=== PATIENT | female | born 1950 | race Native Hawaiian/Other Pacific Islander ===

== ENCOUNTER 2019-06-01 00:36 | Inpatient (IN) | payer OTHER, MEDICAID ==
[~2019-06-01] VITALS: Ht 161.3 cm; Wt 58.1 kg
[2019-06-01] VITALS (8 sets, daily range): BP systolic 119–153
[2019-06-01] MEDS ORDERED: ASPIRIN 81 MG TAB.CHEW PO ONE (01:15)
[2019-06-01 01:47] LABS: BASOPHILS # (AUTO) 0.1 K/uL (0.0-0.2); BASOPHILS % (AUTO) 0.9 % (0.0-2.0); EOSINOPHILS # (AUTO) 0.1 K/uL (0.0-0.4); EOSINOPHILS % (AUTO) 1.9 % (0.0-4.0); HEMATOCRIT 33.8 % (36-48); HEMOGLOBIN 10.8 g/dL (12.0-16.0); LYMPHOCYTES # (AUTO) 1.6 K/uL (1.0-5.5); LYMPHOCYTES % (AUTO) 21.1 % (20.5-51.5); MEAN CORPUSCULAR HEMOGLOBIN 25 pg (27-31); MEAN CORPUSCULAR HGB CONC 32 % (32-36); MEAN CORPUSCULAR VOLUME 79 fL (79.0-98.0); MONOCYTES # (AUTO) 0.4 K/uL (0.0-1.0); MONOCYTES % (AUTO) 5.4 % (1.7-9.3); NEUTROPHILS # (AUTO) 5.4 K/uL (1.8-7.7); NEUTROPHILS % (AUTO) 70.7 % (40.0-70.0); PLATELET COUNT (AUTO) 335 K/uL (130-430); RED BLOOD CELL COUNT(AUTO) 4.28 MIL/uL (4.2-6.2); WHITE BLOOD COUNT (AUTO) 7.7 K/uL (4.8-10.8)
[2019-06-01 01:53] LABS: PROTHROMBIN TIME 10.3 SECS (9.5-12.5)
[2019-06-01 01:56] LABS: CALCIUM 8.3 mg/dL (8.4-11.0); CREATININE 1.34 mg/dL (0.55-1.30)
[2019-06-01 02:01] LABS: ALBUMIN 3.3 g/dL (3.4-4.8); TOTAL BILIRUBIN 0.3 mg/dL (0.0-1.0)
[2019-06-01] MEDS ORDERED: HEPARIN 25,000 UNITS/D5W 250ML 250 ML IV ONE (02:30)
[2019-06-01] MEDS ORDERED: DOXYCYCLINE HYCLATE 100 MG CAPSULE PO ONE (02:30)
[2019-06-01] MEDS ORDERED: HEPARIN SODIUM,PORCINE 5000 UNITS/ML VIAL IVP ONE (02:30)
[2019-06-01] MEDS ORDERED: DOXYCYCLINE HYCLATE 100 MG CAPSULE ONE (03:52)
[2019-06-01] MEDS ORDERED: ONDANSETRON HCL 4 MG/2 ML VIAL IVP PRN (05:00)
[2019-06-01] MEDS ORDERED: ACETAMINOPHEN 325 MG TABLET PO PRN (05:00)
[2019-06-01] MEDS ORDERED: HYDROcodone/ACETAMIN 5-325 MG TAB (NORCO/ VICODIN) PO PRN (05:00)
[2019-06-01] MEDS ORDERED: POTASSIUM CHLORIDE 20 MEQ TAB.PRT.SR PO ONE (05:00)
[2019-06-01] MEDS ORDERED: FLU VACC TS2019(65UP)/MF59C/PF 45 MCG/0.5 ML SYRINGE I.M. PRN (08:15)
[2019-06-01] MEDS ORDERED: PIPERACILLIN/TAZO 3.375/DEX-IS 50 ML IV SCH (08:15)
[2019-06-01 08:20] LABS: BASOPHILS % (AUTO) 0.5 % (0.0-2.0); EOSINOPHILS % (AUTO) 0.5 % (0.0-4.0); HEMATOCRIT 31.5 % (36-48); HEMOGLOBIN 10.3 g/dL (12.0-16.0); LYMPHOCYTES # (AUTO) 1.3 K/uL (1.0-5.5); LYMPHOCYTES % (AUTO) 18.4 % (20.5-51.5); MEAN CORPUSCULAR HEMOGLOBIN 26 pg (27-31); MEAN CORPUSCULAR HGB CONC 33 % (32-36); MEAN CORPUSCULAR VOLUME 79 fL (79.0-98.0); MONOCYTES # (AUTO) 0.3 K/uL (0.0-1.0); MONOCYTES % (AUTO) 4.7 % (1.7-9.3); NEUTROPHILS # (AUTO) 5.4 K/uL (1.8-7.7); NEUTROPHILS % (AUTO) 75.9 % (40.0-70.0); PLATELET COUNT (AUTO) 312 K/uL (130-430); RED BLOOD CELL COUNT(AUTO) 4.02 MIL/uL (4.2-6.2); RED CELL DISTRIBUTION WIDTH 17.1 % (9.0-15.0); WHITE BLOOD COUNT (AUTO) 7.1 K/uL (4.8-10.8)
[2019-06-01 08:42] LABS: CALCIUM 8.3 mg/dL (8.4-11.0); CREATININE 1.17 mg/dL (0.55-1.30); PHOSPHORUS 3.9 mg/dL (2.7-4.5); THYROID STIMULATING HORMONE 1.13 uIu/mL (0.36-3.74)
[2019-06-01] MEDS ORDERED: PIPERACILLIN/TAZO 3.375/DEX-IS 50 ML IV ONE (09:00)
[2019-06-01] MEDS ORDERED: ASPIRIN 81 MG TABLET(ECOTRIN) PO SCH (10:00)
[2019-06-01] MEDS ORDERED: FUROSEMIDE 40 MG TABLET PO ONE (10:15)
[2019-06-01] MEDS ORDERED: CARVEDILOL 3.125 MG TABLET (COREG) PO ONE (10:15)
[2019-06-01] MEDS ORDERED: LISINOPRIL 5 MG TABLET PO ONE (10:15)
[2019-06-01] MEDS ORDERED: SPIRONOLACTONE 50 MG TABLET (ALDACTONE) PO ONE (10:15)
[2019-06-01] MEDS ORDERED: ATORVASTATIN 10 MG TABLET PO ONE (10:30)
[2019-06-01] MEDS: DOCUSATE SODIUM 100 MG CAPSULE PO SCH ×2 (10:56→21:00)
[2019-06-01 11:08] LABS: BILIRUBIN,URINE NEGATIVE (NEGATIVE); BLOOD, URINE NEGATIVE (NEGATIVE); CLARITY/URINE CLEAR (CLEAR); COLOR,URINE YELLOW (YELLOW); GLUCOSE,URINE NEGATIVE (NEGATIVE); KETONES,URINE NEGATIVE (NEGATIVE); LEUKOCYTE ESTERASE ,URINE NEGATIVE (NEGATIVE); NITRITE, URINE NEGATIVE (NEGATIVE); PROTEIN URINE NEGATIVE (NEGATIVE); UROBILINOGEN,URINE 0.2 (0.2-1.0)
[2019-06-01 11:18] LABS: BARBITURATE, URINE NEGATIVE (NEG <=200); BENZODIAZEPINE, URINE NEGATIVE (NEG <=150); CANNABINOID, URINE NEGATIVE (NEG <=50); COCAINE, URINE NEGATIVE (NEG <=150); METHAMPHETAMINES SCREEN,URINE NEGATIVE (NEG <=500); OPIATE, URINE NEGATIVE (NEG <=100); PHENCYCLIDINE SCREEN,URINE NEGATIVE (NEG <=25); UR TRICYCLIC ANTIDEPRESSANTS NEGATIVE (NEG <=300); URINE AMPHETAMINE NEGATIVE (NEG <=500); URINE METHADONE NEGATIVE (NEG <=200); URINE OXYCODONE SCREEN NEGATIVE (NEG <=100); URINE PROPOXYPHENE SCREEN NEGATIVE (NEG <=300)
[2019-06-01] MEDS: PIPERACILLIN/TAZO 2.25G/DEX-IS 50 ML IV SCH ×2 (14:42→21:00)
[2019-06-01] MEDS ORDERED: FUROSEMIDE 20 MG/2 ML VIAL IVP ONE (15:15)
[2019-06-01] MEDS ORDERED: METOPROLOL TARTRATE 25 MG TABLET PO SCH (21:00)
[2019-06-01] MEDS ORDERED: ENOXAPARIN SODIUM 40 MG/0.4 ML SYRINGE SUBCUT SCH (21:00)
[2019-06-01] MEDS: CARVEDILOL 3.125 MG TABLET (COREG) PO SCH (21:00)
[2019-06-02] VITALS (7 sets, daily range): BP systolic 100–132
[2019-06-02] MEDS: PIPERACILLIN/TAZO 2.25G/DEX-IS 50 ML IV SCH ×4 (02:58→20:56)
[2019-06-02 07:08] LABS: BASOPHILS # (AUTO) 0.1 K/uL (0.0-0.2); BASOPHILS % (AUTO) 0.8 % (0.0-2.0); EOSINOPHILS # (AUTO) 0.2 K/uL (0.0-0.4); EOSINOPHILS % (AUTO) 3.4 % (0.0-4.0); HEMOGLOBIN 11.4 g/dL (12.0-16.0); LYMPHOCYTES # (AUTO) 1.3 K/uL (1.0-5.5); LYMPHOCYTES % (AUTO) 20.1 % (20.5-51.5); MEAN CORPUSCULAR HEMOGLOBIN 25 pg (27-31); MEAN CORPUSCULAR HGB CONC 32 % (32-36); MEAN CORPUSCULAR VOLUME 79 fL (79.0-98.0); MONOCYTES # (AUTO) 0.4 K/uL (0.0-1.0); MONOCYTES % (AUTO) 6.6 % (1.7-9.3); NEUTROPHILS # (AUTO) 4.5 K/uL (1.8-7.7); NEUTROPHILS % (AUTO) 69.1 % (40.0-70.0); PLATELET COUNT (AUTO) 357 K/uL (130-430); RED BLOOD CELL COUNT(AUTO) 4.57 MIL/uL (4.2-6.2); RED CELL DISTRIBUTION WIDTH 17.3 % (9.0-15.0); WHITE BLOOD COUNT (AUTO) 6.5 K/uL (4.8-10.8)
[2019-06-02 07:37] LABS: ALBUMIN 3.3 g/dL (3.4-4.8); CALCIUM 8.8 mg/dL (8.4-11.0); CREATININE 1.57 mg/dL (0.55-1.30); POTASSIUM 3.9 mmol/L (3.5-5.1); THYROID STIMULATING HORMONE 1.05 uIu/mL (0.36-3.74); TOTAL BILIRUBIN 0.6 mg/dL (0.0-1.0)
[2019-06-02] MEDS: DOCUSATE SODIUM 100 MG CAPSULE PO SCH ×2 (09:00→20:55)
[2019-06-02] MEDS: ASPIRIN 81 MG TAB.CHEW PO SCH (09:15)
[2019-06-02] MEDS: ATORVASTATIN 10 MG TABLET PO SCH (09:15)
[2019-06-02] MEDS: LISINOPRIL 5 MG TABLET PO SCH (09:16)
[2019-06-02] MEDS: CARVEDILOL 3.125 MG TABLET (COREG) PO SCH ×2 (09:16→20:55)
[2019-06-02] MEDS: FUROSEMIDE 40 MG TABLET PO SCH (09:17)
[2019-06-02] MEDS: SPIRONOLACTONE 50 MG TABLET (ALDACTONE) PO SCH (09:19)
[2019-06-02] MEDS: AZITHROMYCIN 500 MG in NS 250 ML IV SCH (12:18)
[2019-06-02] MEDS: ENOXAPARIN SODIUM 40 MG/0.4 ML SYRINGE SUBCUT SCH (20:57)
[2019-06-03] VITALS: BP_SYST 117
[2019-06-03] MEDS: PIPERACILLIN/TAZO 2.25G/DEX-IS 50 ML IV SCH ×4 (02:44→20:39)
[2019-06-03 06:42] LABS: BASOPHILS % (AUTO) 0.7 % (0.0-2.0); EOSINOPHILS # (AUTO) 0.3 K/uL (0.0-0.4); EOSINOPHILS % (AUTO) 5.2 % (0.0-4.0); LYMPHOCYTES # (AUTO) 1.5 K/uL (1.0-5.5); LYMPHOCYTES % (AUTO) 25.9 % (20.5-51.5); MEAN CORPUSCULAR HEMOGLOBIN 25 pg (27-31); MEAN CORPUSCULAR HGB CONC 32 % (32-36); MEAN CORPUSCULAR VOLUME 79 fL (79.0-98.0); MONOCYTES # (AUTO) 0.5 K/uL (0.0-1.0); NEUTROPHILS # (AUTO) 3.4 K/uL (1.8-7.7); NEUTROPHILS % (AUTO) 59.2 % (40.0-70.0); PLATELET COUNT (AUTO) 343 K/uL (130-430); RED BLOOD CELL COUNT(AUTO) 4.43 MIL/uL (4.2-6.2); RED CELL DISTRIBUTION WIDTH 17.5 % (9.0-15.0); WHITE BLOOD COUNT (AUTO) 5.8 K/uL (4.8-10.8)
[2019-06-03 06:55] LABS: CALCIUM 8.7 mg/dL (8.4-11.0); CREATININE 1.51 mg/dL (0.55-1.30); POTASSIUM 3.2 mmol/L (3.5-5.1)
[2019-06-03 07:33] VITALS: BP_SYST 133
[2019-06-03] MEDS: FUROSEMIDE 40 MG TABLET PO SCH (08:44)
[2019-06-03] MEDS: ASPIRIN 81 MG TAB.CHEW PO SCH (08:44)
[2019-06-03] MEDS: LISINOPRIL 5 MG TABLET PO SCH (08:45)
[2019-06-03] MEDS: ATORVASTATIN 10 MG TABLET PO SCH (08:45)
[2019-06-03] MEDS: CARVEDILOL 3.125 MG TABLET (COREG) PO SCH (08:45)
[2019-06-03] MEDS: SPIRONOLACTONE 50 MG TABLET (ALDACTONE) PO SCH (08:46)
[2019-06-03] MEDS: DOCUSATE SODIUM 100 MG CAPSULE PO SCH ×2 (08:49→20:40)
[2019-06-03] MEDS ORDERED: POTASSIUM CHLORIDE 20 MEQ TAB.PRT.SR PO ONE (09:45)
[2019-06-03] MEDS: AZITHROMYCIN 500 MG in NS 250 ML IV SCH (10:57)
[2019-06-03 11:27] VITALS: BP_SYST 99
[2019-06-03 15:17] VITALS: BP_SYST 127
[2019-06-03 20:00] VITALS: BP_SYST 113
[2019-06-03] MEDS: CARVEDILOL 12.5 MG TABLET (COREG) PO SCH (20:40)
[2019-06-03] MEDS: ENOXAPARIN SODIUM 40 MG/0.4 ML SYRINGE SUBCUT SCH (20:46)
[2019-06-04] VITALS: BP_SYST 100
[2019-06-04] MEDS: PIPERACILLIN/TAZO 2.25G/DEX-IS 50 ML IV SCH ×2 (03:00→08:08)
[2019-06-04 07:03] LABS: BASOPHILS # (AUTO) 0.1 K/uL (0.0-0.2); EOSINOPHILS # (AUTO) 0.2 K/uL (0.0-0.4); EOSINOPHILS % (AUTO) 4.4 % (0.0-4.0); HEMATOCRIT 35.4 % (36-48); HEMOGLOBIN 11.1 g/dL (12.0-16.0); LYMPHOCYTES # (AUTO) 1.5 K/uL (1.0-5.5); LYMPHOCYTES % (AUTO) 28.1 % (20.5-51.5); MEAN CORPUSCULAR HEMOGLOBIN 25 pg (27-31); MEAN CORPUSCULAR HGB CONC 31 % (32-36); MEAN CORPUSCULAR VOLUME 79 fL (79.0-98.0); MONOCYTES # (AUTO) 0.5 K/uL (0.0-1.0); MONOCYTES % (AUTO) 8.3 % (1.7-9.3); NEUTROPHILS # (AUTO) 3.2 K/uL (1.8-7.7); NEUTROPHILS % (AUTO) 58.2 % (40.0-70.0); PLATELET COUNT (AUTO) 365 K/uL (130-430); RED BLOOD CELL COUNT(AUTO) 4.51 MIL/uL (4.2-6.2); RED CELL DISTRIBUTION WIDTH 17.4 % (9.0-15.0); WHITE BLOOD COUNT (AUTO) 5.5 K/uL (4.8-10.8)
[2019-06-04 07:36] LABS: CALCIUM 8.9 mg/dL (8.4-11.0); CREATININE 1.52 mg/dL (0.55-1.30); POTASSIUM 4.5 mmol/L (3.5-5.1)
[2019-06-04] MEDS: DOCUSATE SODIUM 100 MG CAPSULE PO SCH (07:45)
[2019-06-04] MEDS: ATORVASTATIN 10 MG TABLET PO SCH (08:06)
[2019-06-04] MEDS: ASPIRIN 81 MG TAB.CHEW PO SCH (08:06)
[2019-06-04 08:07] VITALS: BP_SYST 114
[2019-06-04] MEDS: CARVEDILOL 12.5 MG TABLET (COREG) PO SCH (08:07)
[2019-06-04] MEDS: FUROSEMIDE 40 MG TABLET PO SCH (08:07)
[2019-06-04] MEDS: SPIRONOLACTONE 50 MG TABLET (ALDACTONE) PO SCH (08:07)
[2019-06-04] MEDS ORDERED: LISINOPRIL 5 MG TABLET PO SCH (09:00)
[2019-06-04] MEDS ORDERED: FURO-149 PO (10:04)
[2019-06-04] MEDS ORDERED: LIP10 PO (10:04)
[2019-06-04] MEDS ORDERED: CARV6.2554 PO (10:04)
[2019-06-04] MEDS ORDERED: LEVO500T89 PO (10:05)
[2019-06-04] MEDS ORDERED: POTA8TAB4 PO (10:05)
[2019-06-04 10:14] VITALS: BP_SYST 126
[2019-06-04] MEDS ORDERED: FLU VACC TS2019(65UP)/MF59C/PF 45 MCG/0.5 ML SYRINGE I.M. PRN (10:30)
== END 2019-06-04 10:55 | disposition home or self-care (01) | DRG 177 ==
LOC: SED 00:36 → STU 03:31 → SIC 06:31 → STU 15:36
PROVIDERS: ADMIT Student in an Organized Health Care Education/Training Program; ATTEND Student in an Organized Health Care Education/Training Program
DX: J69.0 Pneumonitis due to inhalation of food and vomit (principal); I21.A1 Myocardial infarction type 2; N17.0 Acute kidney failure with tubular necrosis; I50.43 Acute on chronic combined systolic (congestive) and diastolic (congestive) heart failure; J44.1 Chronic obstructive pulmonary disease with (acute) exacerbation; I42.9 Cardiomyopathy, unspecified; E78.5 Hyperlipidemia, unspecified; E87.6 Hypokalemia; F17.210 Nicotine dependence, cigarettes, uncomplicated; I11.0 Hypertensive heart disease with heart failure; I34.0 Nonrheumatic mitral (valve) insufficiency; I44.7 Left bundle-branch block, unspecified; Z80.49 Family history of malignant neoplasm of other genital organs; Z82.49 Family history of ischemic heart disease and other diseases of the circulatory system
CPT/HCPCS: 36415; 71045; 71046-TC; 71250-TC; 80048; 80053; 80061; 80307; 81003; 82150-TC; 82550-TC; 83036; 83735-TC; 83880; 84100-TC; 84443-TC; 84484; 85025; 85379; 85610-TC; 85730-TC; 87040-TC; 87081; 93005; 93306; 96374; 99285; G0378; J0456; J1644; J1650; J1940; J2543; J7050

== ENCOUNTER 2019-10-12 12:17 | Inpatient (IN) | payer MEDICAID, OTHER ==
[~2019-10-12] VITALS: Ht 160 cm; Wt 59.0 kg
[2019-10-12 12:17] VITALS: BP_SYST 119
[~2019-10-12 12:17] MED LIST: CARV6.2554 PO; FURO-149 PO; LEVO500T89 PO; LIP10 PO; POTA8TAB4 PO
[2019-10-12 12:50] LABS: BASOPHILS % (AUTO) 0.4 % (0.0-2.0); EOSINOPHILS % (AUTO) 0.3 % (0.0-4.0); HEMATOCRIT 25.9 % (36-48); HEMOGLOBIN 8.1 g/dL (12.0-16.0); LYMPHOCYTES # (AUTO) 0.9 K/uL (1.0-5.5); LYMPHOCYTES % (AUTO) 18.1 % (20.5-51.5); MEAN CORPUSCULAR HEMOGLOBIN 25 pg (27-31); MEAN CORPUSCULAR HGB CONC 31 % (32-36); MEAN CORPUSCULAR VOLUME 80 fL (79.0-98.0); MONOCYTES # (AUTO) 0.8 K/uL (0.0-1.0); MONOCYTES % (AUTO) 16.1 % (1.7-9.3); NEUTROPHILS # (AUTO) 3.1 K/uL (1.8-7.7); NEUTROPHILS % (AUTO) 65.1 % (40.0-70.0); PLATELET COUNT (AUTO) 332 K/uL (130-430); RED BLOOD CELL COUNT(AUTO) 3.24 MIL/uL (4.2-6.2); RED CELL DISTRIBUTION WIDTH 16.1 % (9.0-15.0); WHITE BLOOD COUNT (AUTO) 4.8 K/uL (4.8-10.8)
[2019-10-12 12:58] LABS: CALCIUM 8.4 mg/dL (8.4-11.0); CREATININE 1.68 mg/dL (0.55-1.30); POTASSIUM 3.6 mmol/L (3.5-5.1)
[2019-10-12 13:02] LABS: INR 1.1 (0.8-1.2); PROTHROMBIN TIME 10.9 SECS (9.5-12.5)
[2019-10-12 13:03] LABS: TOTAL BILIRUBIN 0.3 mg/dL (0.0-1.0)
[2019-10-12 16:28] VITALS: BP_SYST 141
[2019-10-12] MEDS ORDERED: *HEPARIN PER PHARMACY XX ONE (16:30)
[2019-10-12] MEDS ORDERED: ASPIRIN 81 MG TAB.CHEW PO ONE (16:45)
[2019-10-12] MEDS ORDERED: FLU VACC TS2019(65UP)/MF59C/PF 45 MCG/0.5 ML SYRINGE I.M. PRN (16:45)
[2019-10-12] MEDS ORDERED: HEPARIN SODIUM,PORCINE 3000 UNITS/0.6 ML BOLUS IVP PRN (17:00)
[2019-10-12] MEDS ORDERED: HEPARIN SODIUM,PORCINE 2000 UNITS/0.4 ML BOLUS IVP PRN (17:00)
[2019-10-12] MEDS ORDERED: HEPARIN 25,000 UNITS in 250 ML PREMIX IV PRN (17:00)
[2019-10-12] MEDS ORDERED: HEPARIN SODIUM,PORCINE 5000 UNITS/ML VIAL IVP ONE (17:00)
[2019-10-12] MEDS ORDERED: PANTOPRAZOLE SODIUM 40 MG/VIAL (PROTONIX) IVP ONE (17:15)
[2019-10-12] MEDS ORDERED: DEXTROSE 50% JECT 50 ML DISP.SYRIN IVP PRN (17:30)
[2019-10-12] MEDS ORDERED: INSULIN REGULAR, HUMAN 100 UNITS/ML, 10 ML VIAL (humuLIN R) SUBCUT PRN (17:30)
[2019-10-12 17:59] LABS: TOTAL IRON BIND. CAPACITY 371 ug/dL (250-450)
[2019-10-12] MEDS: NACL 0.9% 1,000 ML IV SCH (18:07)
[2019-10-12] MEDS ORDERED: SOD FERRIC GLUC COMPLEX/SUC 125 MG in NS 100 ML IV SCH (19:15)
[2019-10-12 19:44] LABS: BASOPHILS % (AUTO) 0.4 % (0.0-2.0); EOSINOPHILS % (AUTO) 0.1 % (0.0-4.0); HEMATOCRIT 23.4 % (36-48); HEMOGLOBIN 7.4 g/dL (12.0-16.0); LYMPHOCYTES # (AUTO) 0.9 K/uL (1.0-5.5); LYMPHOCYTES % (AUTO) 18.1 % (20.5-51.5); MEAN CORPUSCULAR HEMOGLOBIN 25 pg (27-31); MEAN CORPUSCULAR HGB CONC 32 % (32-36); MEAN CORPUSCULAR VOLUME 80 fL (79.0-98.0); MONOCYTES # (AUTO) 0.5 K/uL (0.0-1.0); MONOCYTES % (AUTO) 9.6 % (1.7-9.3); NEUTROPHILS # (AUTO) 3.5 K/uL (1.8-7.7); NEUTROPHILS % (AUTO) 71.8 % (40.0-70.0); PLATELET COUNT (AUTO) 292 K/uL (130-430); RED BLOOD CELL COUNT(AUTO) 2.93 MIL/uL (4.2-6.2); RED CELL DISTRIBUTION WIDTH 16.2 % (9.0-15.0); WHITE BLOOD COUNT (AUTO) 4.9 K/uL (4.8-10.8)
[2019-10-12 20:00] VITALS: BP_SYST 120
[2019-10-12 20:37] LABS: BILIRUBIN,URINE NEGATIVE (NEGATIVE); BLOOD, URINE NEGATIVE (NEGATIVE); CLARITY/URINE CLEAR (CLEAR); COLOR,URINE YELLOW (YELLOW); GLUCOSE,URINE NEGATIVE (NEGATIVE); KETONES,URINE NEGATIVE (NEGATIVE); LEUKOCYTE ESTERASE ,URINE NEGATIVE (NEGATIVE); NITRITE, URINE NEGATIVE (NEGATIVE); PROTEIN URINE NEGATIVE (NEGATIVE); UROBILINOGEN,URINE 0.2 (0.2-1.0)
[2019-10-12] MEDS: PANTOPRAZOLE SODIUM 40 MG/VIAL (PROTONIX) IVP SCH (22:22)
[2019-10-12] MEDS: CARVEDILOL 6.25 MG TABLET (COREG) PO SCH (22:22)
[2019-10-13 00:10] VITALS: BP_SYST 138
[2019-10-13 03:01] VITALS: BP_SYST 140
[2019-10-13 07:13] LABS: BASOPHILS % (AUTO) 0.3 % (0.0-2.0); EOSINOPHILS % (AUTO) 0.7 % (0.0-4.0); HEMOGLOBIN 8.6 g/dL (12.0-16.0); LYMPHOCYTES # (AUTO) 0.9 K/uL (1.0-5.5); LYMPHOCYTES % (AUTO) 22.5 % (20.5-51.5); MEAN CORPUSCULAR HEMOGLOBIN 26 pg (27-31); MEAN CORPUSCULAR HGB CONC 32 % (32-36); MEAN CORPUSCULAR VOLUME 82 fL (79.0-98.0); MONOCYTES # (AUTO) 0.5 K/uL (0.0-1.0); MONOCYTES % (AUTO) 11.6 % (1.7-9.3); NEUTROPHILS # (AUTO) 2.5 K/uL (1.8-7.7); NEUTROPHILS % (AUTO) 64.9 % (40.0-70.0); PLATELET COUNT (AUTO) 275 K/uL (130-430); RED BLOOD CELL COUNT(AUTO) 3.28 MIL/uL (4.2-6.2); WHITE BLOOD COUNT (AUTO) 3.9 K/uL (4.8-10.8)
[2019-10-13 07:20] LABS: ALBUMIN 2.6 g/dL (3.4-4.8); CALCIUM 7.8 mg/dL (8.4-11.0); CREATININE 1.46 mg/dL (0.55-1.30); FREE T4 (FREE THYROXINE) 1.3 ng/dl (0.8-1.5); PHOSPHORUS 3.3 mg/dL (2.7-4.5); POTASSIUM 3.7 mmol/L (3.5-5.1); THYROID STIMULATING HORMONE 0.11 uIu/mL (0.36-3.74); TOTAL BILIRUBIN 0.2 mg/dL (0.0-1.0)
[2019-10-13 08:00] VITALS: BP_SYST 149
[2019-10-13] MEDS ORDERED: SOD FERRIC GLUC COMPLEX/SUC 125 MG in NS 100 ML IV SCH (09:00)
[2019-10-13] MEDS: ASPIRIN 81 MG TAB.CHEW PO SCH (10:10)
[2019-10-13] MEDS: ATORVASTATIN 10 MG TABLET PO SCH (10:11)
[2019-10-13] MEDS: PANTOPRAZOLE SODIUM 40 MG/VIAL (PROTONIX) IVP SCH ×2 (10:12→21:23)
[2019-10-13] MEDS: CARVEDILOL 6.25 MG TABLET (COREG) PO SCH ×2 (10:13→21:23)
[2019-10-13] MEDS: NACL 0.9% 1,000 ML IV SCH (12:05)
[2019-10-13 13:08] VITALS: BP_SYST 146
[2019-10-13] MEDS ORDERED: COMMUNICATION ORDER XX ONE (13:30)
[2019-10-13 17:03] VITALS: BP_SYST 143
[2019-10-13 19:55] VITALS: BP_SYST 162
[2019-10-14 00:12] VITALS: BP_SYST 155
[2019-10-14 06:34] LABS: CALCIUM 8.6 mg/dL (8.4-11.0); CREATININE 1.29 mg/dL (0.55-1.30); POTASSIUM 3.8 mmol/L (3.5-5.1)
[2019-10-14 06:51] LABS: BASOPHILS % (AUTO) 0.4 % (0.0-2.0); EOSINOPHILS # (AUTO) 0.1 K/uL (0.0-0.4); EOSINOPHILS % (AUTO) 1.2 % (0.0-4.0); HEMATOCRIT 34.9 % (36-48); HEMOGLOBIN 11.3 g/dL (12.0-16.0); LYMPHOCYTES % (AUTO) 18.7 % (20.5-51.5); MEAN CORPUSCULAR HEMOGLOBIN 27 pg (27-31); MEAN CORPUSCULAR HGB CONC 33 % (32-36); MEAN CORPUSCULAR VOLUME 83 fL (79.0-98.0); MONOCYTES # (AUTO) 0.6 K/uL (0.0-1.0); MONOCYTES % (AUTO) 11.2 % (1.7-9.3); NEUTROPHILS # (AUTO) 3.5 K/uL (1.8-7.7); NEUTROPHILS % (AUTO) 68.5 % (40.0-70.0); PLATELET COUNT (AUTO) 307 K/uL (130-430); RED BLOOD CELL COUNT(AUTO) 4.19 MIL/uL (4.2-6.2); RED CELL DISTRIBUTION WIDTH 16.6 % (9.0-15.0); WHITE BLOOD COUNT (AUTO) 5.1 K/uL (4.8-10.8)
[2019-10-14 06:58] LABS: PROTHROMBIN TIME 9.9 SECS (9.5-12.5)
[2019-10-14] MEDS ORDERED: SOD FERRIC GLUC COMPLEX/SUC 125 MG in NS 100 ML IV SCH (07:00)
[2019-10-14] MEDS: ATORVASTATIN 10 MG TABLET PO SCH (08:50)
[2019-10-14] MEDS: ASPIRIN 81 MG TAB.CHEW PO SCH (08:50)
[2019-10-14] MEDS: CARVEDILOL 6.25 MG TABLET (COREG) PO SCH (08:50)
[2019-10-14] MEDS: PANTOPRAZOLE SODIUM 40 MG/VIAL (PROTONIX) IVP SCH (08:50)
[2019-10-14 09:01] VITALS: BP_SYST 153
[2019-10-14] MEDS: NACL 0.9% 1,000 ML IV SCH (09:15)
[2019-10-14 10:18] VITALS: BP_SYST 142
[2019-10-14 12:04] VITALS: BP_SYST 142
== END 2019-10-14 12:05 | disposition short-term general hospital (02) | DRG 280 ==
LOC: SED 12:17 → STU 15:41
PROVIDERS: ADMIT Internal Medicine; ATTEND Internal Medicine
PROC: 30233N1 Transfusion of Nonautologous Red Blood Cells into Peripheral Vein, Percutaneous Approach (ICD-10-PCS; principal; 2019-10-12)
DX: I21.9 Acute myocardial infarction, unspecified (principal); N17.0 Acute kidney failure with tubular necrosis; I13.0 Hypertensive heart and chronic kidney disease with heart failure and stage 1 through stage 4 chronic kidney disease, or unspecified chronic kidney disease; I50.42 Chronic combined systolic (congestive) and diastolic (congestive) heart failure; D50.9 Iron deficiency anemia, unspecified; E11.22 Type 2 diabetes mellitus with diabetic chronic kidney disease; N18.3 Chronic kidney disease, stage 3 (moderate); I25.10 Atherosclerotic heart disease of native coronary artery without angina pectoris; E78.5 Hyperlipidemia, unspecified; F17.210 Nicotine dependence, cigarettes, uncomplicated; R41.0 Disorientation, unspecified; R55 Syncope and collapse; I44.7 Left bundle-branch block, unspecified; Z79.899 Other long term (current) drug therapy
CPT/HCPCS: 36415; 70450-TC; 71045; 76770; 80048; 80053; 80061; 81003; 82607; 82746; 82962; 83036; 83540-TC; 83550-TC; 83735-TC; 84100-TC; 84439; 84443-TC; 84484; 85025; 85610-TC; 85730-TC; 86886; 86900; 86901; 86920; 93005; 93306; 99285; C9113; G0378; J1644; J1815; J2916; J7030; J7040; J7050; P9021

== ENCOUNTER 2020-02-22 19:25 | Inpatient (IN) | payer OTHER, MEDICAID, SELFPAY ==
[~2020-02-22] VITALS: Ht 160 cm; Wt 56.4 kg
[~2020-02-22 19:25] MED LIST changes: -LEVO500T89 PO
[2020-02-22] MEDS ORDERED: cefTRIAXone 1 GM IVPB PREMIX 50 ML IV ONE (20:15)
[2020-02-22 20:54] LABS: EOSINOPHILS # (AUTO) 0.1 K/uL (0.0-0.4); EOSINOPHILS % (AUTO) 1.4 % (0.0-4.0); LYMPHOCYTES # (AUTO) 0.7 K/uL (1.0-5.5); MONOCYTES # (AUTO) 0.6 K/uL (0.0-1.0)
[2020-02-22 21:01] LABS: CALCIUM 8.4 mg/dL (8.4-11.0); CREATININE 1.77 mg/dL (0.55-1.30)
[2020-02-22 21:02] LABS: BASOPHILS % (AUTO) 0.3 % (0.0-2.0); LYMPHOCYTES % (AUTO) 7.6 % (20.5-51.5); MEAN CORPUSCULAR HEMOGLOBIN 26 pg (27-31); MEAN CORPUSCULAR HGB CONC 30 % (32-36); MEAN CORPUSCULAR VOLUME 85 fL (79.0-98.0); MONOCYTES % (AUTO) 5.6 % (1.7-9.3); NEUTROPHILS # (AUTO) 8.4 K/uL (1.8-7.7); NEUTROPHILS % (AUTO) 85.1 % (40.0-70.0); PLATELET COUNT (AUTO) 394 K/uL (130-430); RED CELL DISTRIBUTION WIDTH 21.7 % (9.0-15.0); WHITE BLOOD COUNT (AUTO) 9.8 K/uL (4.8-10.8)
[2020-02-22 21:04] LABS: HEMATOCRIT 14.8 % (36-48); HEMOGLOBIN 4.4 g/dL (12.0-16.0); RED BLOOD CELL COUNT(AUTO) 1.74 MIL/uL (4.2-6.2)
[2020-02-22 21:16] LABS: ALBUMIN 2.8 g/dL (3.4-4.8); TOTAL BILIRUBIN 0.2 mg/dL (0.0-1.0)
[2020-02-22 21:40] VITALS: BP_SYST 122
[2020-02-22] MEDS ORDERED: LISI10TA5 PO (23:01)
[2020-02-22] MEDS ORDERED: CARV6.2554 PO (23:01)
[2020-02-22] MEDS ORDERED: FURO-149 PO (23:01)
[2020-02-22] MEDS ORDERED: LIP10 PO (23:02)
[2020-02-22] MEDS ORDERED: ASPI-1457 PO (23:02)
[2020-02-22] MEDS ORDERED: PRO40 PO (23:02)
[2020-02-22] MEDS ORDERED: MECL12.584 PO (23:03)
[2020-02-22] MEDS ORDERED: POTA8TAB4 PO (23:04)
[2020-02-22] MEDS ORDERED: TICA90TA PO (23:04)
[2020-02-22] MEDS ORDERED: HYDROcodone/ACETAMIN 5-325 MG TAB (NORCO/ VICODIN) PO PRN (23:45)
[2020-02-22] MEDS ORDERED: ACETAMINOPHEN 325 MG TABLET PO PRN (23:45)
[2020-02-22] MEDS ORDERED: ONDANSETRON HCL 4 MG/2 ML VIAL IVP PRN (23:45)
[2020-02-23] MEDS ORDERED: MECLIZINE HCL 25 MG TABLET (ANITVERT) PO ONE
[2020-02-23] MEDS ORDERED: PANTOPRAZOLE SODIUM 40 MG TAB PO ONE
[2020-02-23 00:27] LABS: BILIRUBIN,URINE NEGATIVE (NEGATIVE); BLOOD, URINE NEGATIVE (NEGATIVE); COLOR,URINE YELLOW (YELLOW); GLUCOSE,URINE NEGATIVE (NEGATIVE); KETONES,URINE NEGATIVE (NEGATIVE); LEUKOCYTE ESTERASE ,URINE 1+ (NEGATIVE); NITRITE, URINE NEGATIVE (NEGATIVE); PH,URINE 5.5 (5.0-8.0); PROTEIN URINE NEGATIVE (NEGATIVE); UROBILINOGEN,URINE 0.2 (0.2-1.0)
[2020-02-23 00:28] LABS: CLARITY/URINE SLIGHTLY CLOUDY (CLEAR)
[2020-02-23] MEDS: NACL 0.9% 1,000 ML IV SCH ×2 (00:39→14:26)
[2020-02-23] MEDS ORDERED: cefTRIAXone 1 GM IVPB PREMIX 50 ML IV ONE (00:46)
[2020-02-23 00:47] LABS: BACTERIA,URINE FEW /HPF (None Seen); RBC,URINE 0-3 /HPF (0-3)
[2020-02-23 01:25] VITALS: BP_SYST 113
[2020-02-23 08:00] VITALS: BP_SYST 128
[2020-02-23] MEDS ORDERED: ATORVASTATIN 10 MG TABLET PO SCH (09:00)
[2020-02-23] MEDS ORDERED: FUROSEMIDE 40 MG TABLET PO SCH (09:00)
[2020-02-23] MEDS ORDERED: CARVEDILOL 6.25 MG TABLET (COREG) PO SCH (09:00)
[2020-02-23] MEDS: FUROSEMIDE 40 MG TABLET PO SCH (09:05)
[2020-02-23] MEDS: ATORVASTATIN 10 MG TABLET PO SCH (09:05)
[2020-02-23 09:06] LABS: HEMATOCRIT 23.1 % (36-48); HEMOGLOBIN 7.4 g/dL (12.0-16.0)
[2020-02-23] MEDS: LISINOPRIL 10 MG TABLET (PRINIVIL) PO SCH (09:06)
[2020-02-23] MEDS: CARVEDILOL 6.25 MG TABLET (COREG) PO SCH ×2 (09:06→21:18)
[2020-02-23] MEDS: PANTOPRAZOLE SODIUM 40 MG TAB PO SCH (09:06)
[2020-02-23 09:27] LABS: PROTHROMBIN TIME 10.4 SECS (9.5-12.5)
[2020-02-23 12:06] LABS: BASOPHILS % (AUTO) 0.7 % (0.0-2.0); EOSINOPHILS # (AUTO) 0.1 K/uL (0.0-0.4); EOSINOPHILS % (AUTO) 2.5 % (0.0-4.0); HEMATOCRIT 23.3 % (36-48); HEMOGLOBIN 7.6 g/dL (12.0-16.0); LYMPHOCYTES # (AUTO) 0.8 K/uL (1.0-5.5); LYMPHOCYTES % (AUTO) 16.1 % (20.5-51.5); MEAN CORPUSCULAR HEMOGLOBIN 29 pg (27-31); MEAN CORPUSCULAR HGB CONC 33 % (32-36); MEAN CORPUSCULAR VOLUME 88 fL (79.0-98.0); MONOCYTES # (AUTO) 0.5 K/uL (0.0-1.0); MONOCYTES % (AUTO) 9.3 % (1.7-9.3); NEUTROPHILS # (AUTO) 3.6 K/uL (1.8-7.7); NEUTROPHILS % (AUTO) 71.4 % (40.0-70.0); PLATELET COUNT (AUTO) 362 K/uL (130-430); RED BLOOD CELL COUNT(AUTO) 2.65 MIL/uL (4.2-6.2); RED CELL DISTRIBUTION WIDTH 17.4 % (9.0-15.0)
[2020-02-23 12:31] LABS: ALBUMIN 2.8 g/dL (3.4-4.8); CALCIUM 8.5 mg/dL (8.4-11.0); CREATININE 1.64 mg/dL (0.55-1.30); POTASSIUM 4.4 mmol/L (3.5-5.1); TOTAL BILIRUBIN 0.6 mg/dL (0.0-1.0)
[2020-02-23] MEDS ORDERED: BISACODYL 5 MG TABLET.DR (DULCOLAX) PO ONE (17:00)
[2020-02-23] MEDS ORDERED: GOLYTELY / COLYTE SOLUTION 4 LITERS PO ONE (18:00)
[2020-02-23 20:00] VITALS: BP_SYST 133
[2020-02-24] VITALS: BP_SYST 152
[2020-02-24] MEDS: NACL 0.9% 1,000 ML IV SCH (02:02)
[2020-02-24 06:29] LABS: BASOPHILS % (AUTO) 0.7 % (0.0-2.0); EOSINOPHILS # (AUTO) 0.1 K/uL (0.0-0.4); EOSINOPHILS % (AUTO) 3.9 % (0.0-4.0); HEMATOCRIT 23.2 % (36-48); HEMOGLOBIN 7.5 g/dL (12.0-16.0); LYMPHOCYTES # (AUTO) 0.7 K/uL (1.0-5.5); LYMPHOCYTES % (AUTO) 20.5 % (20.5-51.5); MEAN CORPUSCULAR HEMOGLOBIN 28 pg (27-31); MEAN CORPUSCULAR HGB CONC 32 % (32-36); MEAN CORPUSCULAR VOLUME 87 fL (79.0-98.0); MONOCYTES # (AUTO) 0.4 K/uL (0.0-1.0); MONOCYTES % (AUTO) 11.5 % (1.7-9.3); NEUTROPHILS # (AUTO) 2.2 K/uL (1.8-7.7); NEUTROPHILS % (AUTO) 63.4 % (40.0-70.0); PLATELET COUNT (AUTO) 398 K/uL (130-430); RED BLOOD CELL COUNT(AUTO) 2.68 MIL/uL (4.2-6.2); RED CELL DISTRIBUTION WIDTH 17.2 % (9.0-15.0); WHITE BLOOD COUNT (AUTO) 3.4 K/uL (4.8-10.8)
[2020-02-24 06:45] LABS: ALBUMIN 2.9 g/dL (3.4-4.8); CALCIUM 8.6 mg/dL (8.4-11.0); CREATININE 1.6 mg/dL (0.55-1.30); POTASSIUM 3.6 mmol/L (3.5-5.1); TOTAL BILIRUBIN 0.4 mg/dL (0.0-1.0)
[2020-02-24 08:00] VITALS: BP_SYST 134
[2020-02-24] MEDS ORDERED: SIMETHICONE 40 MG/0.6 ML ML ONE (08:23)
[2020-02-24] MEDS: MEPERIDINE HCL/PF 100 MG/ML AMP ONE ×2 (08:48→08:54)
[2020-02-24] MEDS: MIDAZOLAM HCL 5 MG/5 ML VIAL ONE ×3 (08:48→09:16)
[2020-02-24 12:00] VITALS: BP_SYST 117
[2020-02-24] MEDS: ATORVASTATIN 10 MG TABLET PO SCH (13:20)
[2020-02-24] MEDS: CARVEDILOL 6.25 MG TABLET (COREG) PO SCH ×2 (13:20→20:52)
[2020-02-24] MEDS: FUROSEMIDE 40 MG TABLET PO SCH (13:21)
[2020-02-24] MEDS: PANTOPRAZOLE SODIUM 40 MG TAB PO SCH (13:21)
[2020-02-24] MEDS: LISINOPRIL 10 MG TABLET (PRINIVIL) PO SCH (13:22)
[2020-02-24 16:00] VITALS: BP_SYST 102
[2020-02-24 20:00] VITALS: BP_SYST 128
[2020-02-25 00:09] VITALS: BP_SYST 130
[2020-02-25 06:26] LABS: BASOPHILS % (AUTO) 0.8 % (0.0-2.0); EOSINOPHILS # (AUTO) 0.2 K/uL (0.0-0.4); EOSINOPHILS % (AUTO) 4.4 % (0.0-4.0); HEMATOCRIT 23.9 % (36-48); HEMOGLOBIN 7.7 g/dL (12.0-16.0); LYMPHOCYTES # (AUTO) 1.1 K/uL (1.0-5.5); LYMPHOCYTES % (AUTO) 23.7 % (20.5-51.5); MEAN CORPUSCULAR HEMOGLOBIN 28 pg (27-31); MEAN CORPUSCULAR HGB CONC 32 % (32-36); MEAN CORPUSCULAR VOLUME 87 fL (79.0-98.0); MONOCYTES # (AUTO) 0.4 K/uL (0.0-1.0); MONOCYTES % (AUTO) 9.4 % (1.7-9.3); NEUTROPHILS # (AUTO) 2.8 K/uL (1.8-7.7); NEUTROPHILS % (AUTO) 61.7 % (40.0-70.0); PLATELET COUNT (AUTO) 393 K/uL (130-430); RED BLOOD CELL COUNT(AUTO) 2.76 MIL/uL (4.2-6.2); RED CELL DISTRIBUTION WIDTH 17.4 % (9.0-15.0); WHITE BLOOD COUNT (AUTO) 4.5 K/uL (4.8-10.8)
[2020-02-25 06:39] LABS: ALBUMIN 2.8 g/dL (3.4-4.8); CALCIUM 8.7 mg/dL (8.4-11.0); CREATININE 1.61 mg/dL (0.55-1.30); POTASSIUM 3.6 mmol/L (3.5-5.1); TOTAL BILIRUBIN 0.2 mg/dL (0.0-1.0)
[2020-02-25 08:00] VITALS: BP_SYST 112
[2020-02-25] MEDS: PANTOPRAZOLE SODIUM 40 MG TAB PO SCH (08:54)
[2020-02-25] MEDS: ATORVASTATIN 10 MG TABLET PO SCH (08:55)
[2020-02-25] MEDS: CARVEDILOL 6.25 MG TABLET (COREG) PO SCH (08:55)
[2020-02-25] MEDS: FUROSEMIDE 40 MG TABLET PO SCH (08:56)
[2020-02-25] MEDS: LISINOPRIL 10 MG TABLET (PRINIVIL) PO SCH (08:56)
[2020-02-25] MEDS ORDERED: PRO40 PO (09:37)
[2020-02-25 09:59] VITALS: BP_SYST 112
== END 2020-02-25 10:30 | disposition home or self-care (01) | DRG 377 ==
LOC: SED 19:25 → STU 02-23 00:12
PROVIDERS: ADMIT Internal Medicine Hospice and Palliative Medicine; ATTEND Internal Medicine Hospice and Palliative Medicine
PROC: 30233N1 Transfusion of Nonautologous Red Blood Cells into Peripheral Vein, Percutaneous Approach (ICD-10-PCS; 2020-02-23)
PROC: 0DBP8ZZ Excision of Rectum, Via Natural or Artificial Opening Endoscopic (ICD-10-PCS; 2020-02-24)
PROC: 0DB68ZX Excision of Stomach, Via Natural or Artificial Opening Endoscopic, Diagnostic (ICD-10-PCS; principal; 2020-02-24 08:30)
PROC: 0DBM8ZZ Excision of Descending Colon, Via Natural or Artificial Opening Endoscopic (ICD-10-PCS; 2020-02-24 08:30)
DX: K29.71 Gastritis, unspecified, with bleeding (principal); N17.0 Acute kidney failure with tubular necrosis; D50.9 Iron deficiency anemia, unspecified; E78.5 Hyperlipidemia, unspecified; I10 Essential (primary) hypertension; M19.90 Unspecified osteoarthritis, unspecified site; K62.1 Rectal polyp; K63.5 Polyp of colon; R55 Syncope and collapse; F17.210 Nicotine dependence, cigarettes, uncomplicated; I25.10 Atherosclerotic heart disease of native coronary artery without angina pectoris; Z20.828 Contact with and (suspected) exposure to other viral communicable diseases; K64.4 Residual hemorrhoidal skin tags; Z95.5 Presence of coronary angioplasty implant and graft; Z79.02 Long term (current) use of antithrombotics/antiplatelets; Z79.82 Long term (current) use of aspirin; I25.2 Old myocardial infarction; Z79.899 Other long term (current) drug therapy; Z82.49 Family history of ischemic heart disease and other diseases of the circulatory system
CPT/HCPCS: 36415; 36430; 43239; 45380; 71045; 80053; 80061; 81000-TC; 82272; 83051; 83605; 83735-TC; 83880; 84484; 85014-TC; 85025; 85049-TC; 85384-TC; 85610-TC; 86886; 86900; 86901; 86920; 87040-TC; 87081; 87086; 88305; 88312; 88313; 93005; 93306; 96365; 99285; G0378; J0696; J2175; J2250; J2405; J7030; J7050; J8597; P9021; U0003-CS